=== PATIENT | female | born 1930 | race Caucasian/White ===

== ENCOUNTER → 2016-05-12 | Outpatient (REF) | payer MEDICARE | LOC: M SFHCCLAY 08:27 | PROVIDERS: ATTEND Family Medicine | DX: E78.4 Other hyperlipidemia (principal); E11.21 Type 2 diabetes mellitus with diabetic nephropathy ==

== ENCOUNTER → 2016-10-19 | Outpatient (REF) | payer MEDICARE | LOC: M LAB REF 19:52 | PROVIDERS: ATTEND Physician Assistant | DX: H65.01 Acute serous otitis media, right ear (principal) ==

== ENCOUNTER → 2016-11-23 | Outpatient (REF) | payer MEDICARE ==
[2016-11-23 12:42] LABS: ALBUMIN 3.8 GM/DL (3.2-5.2); ALBUMIN/GLOBULIN RATIO 1.12 (1.00-1.93); BILIRUBIN,TOTAL 0.3 MG/DL (0.2-1.0); CALCIUM LEVEL 9.4 MG/DL (8.8-10.2); CREATININE FOR GFR 1.34 MG/DL (0.55-1.02); GLOMERULAR FILTRATION RATE 39.8 (>32); MAGNESIUM LEVEL 2.2 MG/DL (1.8-2.4); TOTAL PROTEIN 7.2 GM/DL (6.4-8.2)
[2016-11-23 12:48] LABS: POTASSIUM SERUM 5.4 MEQ/L (3.5-5.1)
== END ==
LOC: M SFHCCLAY 07:26
PROVIDERS: ATTEND Family Medicine
DX: E78.4 Other hyperlipidemia (principal); E11.21 Type 2 diabetes mellitus with diabetic nephropathy; R25.2 Cramp and spasm; I10 Essential (primary) hypertension

== ENCOUNTER → 2016-11-27 | Outpatient (REF) | payer MEDICARE | LOC: M SFHCCLAY 11:31 | PROVIDERS: ATTEND Family Medicine | DX: R25.2 Cramp and spasm (principal); I10 Essential (primary) hypertension; E78.4 Other hyperlipidemia ==

== ENCOUNTER → 2017-03-21 | Outpatient (REF) | payer MEDICARE ==
[2017-03-21 16:33] LABS: CALCIUM LEVEL 10.1 MG/DL (8.8-10.2); CREATININE FOR GFR 1.63 MG/DL (0.55-1.02); GLOMERULAR FILTRATION RATE 31.7 (>32); PHOSPHORUS LEVEL 3.6 MG/DL (2.5-4.9); POTASSIUM SERUM 4.7 MEQ/L (3.5-5.1)
== END ==
LOC: M SFHCCLAY 10:35
PROVIDERS: ATTEND Family Medicine
DX: E11.21 Type 2 diabetes mellitus with diabetic nephropathy (principal)
CPT/HCPCS: 80069; G0463

== ENCOUNTER → 2017-04-04 | Outpatient (REF) | payer MEDICARE ==
[2017-04-04 11:43] LABS: ALBUMIN 3.9 GM/DL (3.2-5.2); CALCIUM LEVEL 9.5 MG/DL (8.8-10.2); CREATININE FOR GFR 1.88 MG/DL (0.55-1.02); GLOMERULAR FILTRATION RATE 26.9 (>32); PHOSPHORUS LEVEL 3.3 MG/DL (2.5-4.9); POTASSIUM SERUM 4.8 MEQ/L (3.5-5.1)
== END ==
LOC: M SFHCCLAY 08:11
PROVIDERS: ATTEND Family Medicine
DX: E11.21 Type 2 diabetes mellitus with diabetic nephropathy (principal)

== ENCOUNTER → 2017-04-27 | Outpatient (REF) | payer MEDICARE ==
[2017-04-27 18:53] LABS: FERRITIN 17 NG/ML (8-252); IRON (FE) 53 UG/DL (50-170); PERCENT SATURATION 12.3 % (13.2-45.0); TOTAL IRON BINDING CAPACITY 431 UG/DL (250-450)
== END ==
LOC: M LAB REF 17:20
DX: N18.3 Chronic kidney disease, stage 3 (moderate) (principal); D63.1 Anemia in chronic kidney disease
CPT/HCPCS: 83550

== ENCOUNTER → 2017-05-15 | Outpatient (CLI) | payer MEDICARE | LOC: M CLY 11:10 | DX: M46.02 Spinal enthesopathy, cervical region (principal); M41.9 Scoliosis, unspecified; G95.89 Other specified diseases of spinal cord | CPT/HCPCS: 72050 ==

== ENCOUNTER → 2017-07-26 | Outpatient (REF) | payer MEDICARE | LOC: M LAB REF 13:09 | DX: N18.3 Chronic kidney disease, stage 3 (moderate) (principal); R80.9 Proteinuria, unspecified | CPT/HCPCS: 84156 ==

== ENCOUNTER → 2017-08-01 | Outpatient (REF) | payer MEDICARE ==
[2017-08-01 13:26] LABS: ANION GAP 8 MEQ/L (8-16); BLOOD UREA NITROGEN 43 MG/DL (7-18); CALCIUM LEVEL 10.1 MG/DL (8.8-10.2); CARBON DIOXIDE LEVEL 25 MEQ/L (21-32); CHLORIDE LEVEL 104 MEQ/L (98-107); CREATININE FOR GFR 1.52 MG/DL (0.55-1.30); GLOMERULAR FILTRATION RATE 34.4 (>32); GLUCOSE, FASTING 197 MG/DL (70-100); POTASSIUM SERUM 4.8 MEQ/L (3.5-5.1); SODIUM LEVEL 137 MEQ/L (136-145)
[2017-08-01 15:15] LABS: ESTIMATED AVERAGE GLUCOSE 154 MG/DL (60-110)
== END ==
LOC: M SFHCCLAY 09:13
DX: E11.21 Type 2 diabetes mellitus with diabetic nephropathy (principal); N18.3 Chronic kidney disease, stage 3 (moderate); I12.9 Hypertensive chronic kidney disease with stage 1 through stage 4 chronic kidney disease, or unspecified chronic kidney disease
CPT/HCPCS: 83036

== ENCOUNTER → 2018-01-23 | Outpatient (REF) | payer MEDICARE ==
[2018-01-23 12:05] LABS: ANION GAP 7 MEQ/L (8-16); BLOOD UREA NITROGEN 45 MG/DL (7-18); CALCIUM LEVEL 9.5 MG/DL (8.8-10.2); CARBON DIOXIDE LEVEL 28 MEQ/L (21-32); CHLORIDE LEVEL 104 MEQ/L (98-107); CREATININE FOR GFR 1.57 MG/DL (0.55-1.30); GLOMERULAR FILTRATION RATE 33.1 (>32); GLUCOSE, FASTING 142 MG/DL (70-100); POTASSIUM SERUM 4.7 MEQ/L (3.5-5.1); SODIUM LEVEL 139 MEQ/L (136-145)
[2018-01-23 12:18] LABS: ESTIMATED AVERAGE GLUCOSE 157 MG/DL (60-110); HEMOGLOBIN A1c 7.1 %
== END ==
LOC: M SFHCCLAY 07:50
DX: E11.22 Type 2 diabetes mellitus with diabetic chronic kidney disease (principal); N18.3 Chronic kidney disease, stage 3 (moderate)
CPT/HCPCS: 83036

== ENCOUNTER 2018-04-28 18:37 | Emergency (ER) | payer MEDICARE ==
[~2018-04-28] VITALS: Ht 160 cm; Wt 63.2 kg
[2018-04-28] MEDS ORDERED: AZOP0.2S (18:43)
[2018-04-28] MEDS ORDERED: BIMA01SOL (18:43)
[2018-04-28] MEDS ORDERED: FISH7.5C PO (18:43)
[2018-04-28] MEDS ORDERED: HYDR25TAB (18:43)
[2018-04-28] MEDS ORDERED: OSTETAB4 PO (18:43)
[2018-04-28] MEDS ORDERED: GLIP5TAB8 (18:43)
[2018-04-28] MEDS ORDERED: MULTCAP PO (18:43)
[2018-04-28] MEDS ORDERED: AMLO5TAB6 (18:43)
[2018-04-28 19:52] VITALS: BP 152/73
[2018-04-28] MEDS ORDERED: ACETAMINOPH W/CODEINE #3 TAB UD PO ONE (20:15)
--- NOTE | 2018-04-29 06:30 | REP ---
Left humerus: Two views. History: Pain after a fall. Findings: Two views of the left humerus demonstrate an impacted and somewhat comminuted fracture of the surgical neck of the left proximal humerus. There is diffuse osteopenia. There are surgical clips in the left axillary soft tissues. No scapular or clavicular fracture. Impression: Impacted and somewhat comminuted fracture of the surgical neck of the left proximal humerus. Electronically Signed by Tad Lora MD 04/29/2018 08:13 A
== END 2018-04-28 20:19 | disposition home or self-care (01) ==
LOC: M ED 18:37
DX: S42.202A Unspecified fracture of upper end of left humerus, initial encounter for closed fracture (principal); W01.0XXA Fall on same level from slipping, tripping and stumbling without subsequent striking against object, initial encounter; Y92.018 Other place in single-family (private) house as the place of occurrence of the external cause; I10 Essential (primary) hypertension; E11.9 Type 2 diabetes mellitus without complications; Z79.899 Other long term (current) drug therapy; Z88.8 Allergy status to other drugs, medicaments and biological substances

== ENCOUNTER → 2018-05-17 | Outpatient (CLI) | payer MEDICARE ==
[~2018-05-17] MED LIST: AMLO5TAB6; AZOP0.2S; BIMA01SOL; FENO48TA2; FISH7.5C PO; GLIP5TAB8; HYDR25TAB; LIDO5TD TOP; MULTCAP PO; OSTETAB4 PO; SULF1TAB93 PO
--- NOTE | 2018-05-17 14:31 | REP ---
Clinical: Left sided pleuritic chest pain Technique: Four views of the left hemithorax. Findings: Four views of the left hemithorax demonstrates no obvious acute rib fracture or pathology. Left axillary node dissection noted. No pneumothorax. Nonacute fracture of the humeral head at the surgical neck unchanged compared to 04/28/2018. Impression: No acute rib fracture. Humeral head fracture at the surgical neck unchanged compared to 04/28/2018. Electronically Signed by Erlin Prakash MD 05/17/2018 02:22 P
== END ==
LOC: M CLY 13:56
PROVIDERS: ATTEND Family Medicine
DX: S42.202D Unspecified fracture of upper end of left humerus, subsequent encounter for fracture with routine healing (principal); R07.81 Pleurodynia
CPT/HCPCS: 71100; G0463

== ENCOUNTER 2018-05-25 19:06 | Emergency (ER) | payer MEDICARE ==
[~2018-05-25] VITALS: Ht 157.5 cm; Wt 61.8 kg
[~2018-05-25 19:06] MED LIST changes: -FENO48TA2; -LIDO5TD TOP; -SULF1TAB93 PO
[2018-05-25] MEDS ORDERED: FENO48TA2 (19:16)
--- NOTE | 2018-05-25 21:29 | REPVR ---
EXAM: US Left Duplex Upper Extremity Veins, Limited EXAM DATE/TIME: 05/25/2018 8:42 PM CLINICAL HISTORY: 88 years old, female; Signs and symptoms; Edema, localized; Upper extremity, left; Additional info: L hand swelling, recent l shoulder FX TECHNIQUE: Real-time Duplex ultrasound of the Left Upper Extremity with 2-D kirkpatrick scale, color Doppler flow and spectral waveform analysis. Limited exam focused on the left upper extremity veins. COMPARISON: No relevant prior studies available. FINDINGS: Left deep veins: Internal jugular, subclavian, axillary and brachial veins patent without thrombus. Normal compressibility, augmentation response and/or Doppler waveforms. Left superficial veins: Visualized cephalic and basilic veins patent without thrombus. Soft tissues: Unremarkable. IMPRESSION: No sonographic evidence of deep vein thrombosis. Electronically signed by: Wally Soria On 05/25/2018 21:28:46 PM
[2018-05-25] MEDS ORDERED: ACETAMINOPHEN 325 MG TAB PO ONE (21:30)
[2018-05-25 22:28] LABS: BASO % 0.3 % (0.0-1.0); EOS # 0.1 10^3/uL (0.0-0.50); EOS % 0.8 % (0.0-3.0); HEMATOCRIT 32.2 % (36.0-47.0); HEMOGLOBIN 10.8 g/dl (12.0-15.5); LYMPH # 2.5 10^3/uL (1.5-4.5); LYMPH % 20.9 % (24.0-44.0); MEAN CORPUSCULAR HGB CONC 33.5 g/dl (32.0-36.5); MEAN CORPUSCULAR VOLUME 92.5 fl (80.0-96.0); MONO # 1.3 10^3/uL (0.0-0.8); MONO % 10.9 % (0.0-5.0); NEUTROPHILS % 66.8 % (36.0-66.0); PLATELET COUNT, AUTOMATED 564 10^3/uL (150-450); RED BLOOD COUNT 3.48 10^6/uL (4.00-5.40); WHITE BLOOD COUNT 11.9 10^3/uL (4.0-10.0)
[2018-05-25 22:56] LABS: ALBUMIN 3.4 GM/DL (3.2-5.2); BILIRUBIN,DIRECT 0.1 MG/DL (0.0-0.2); BILIRUBIN,TOTAL 0.2 MG/DL (0.2-1.0); C REACTIVE PROTEIN QUANTITATIV 7.45 MG/DL (0.00-0.30); CREATININE FOR GFR 1.25 MG/DL (0.55-1.30); POTASSIUM SERUM 4.4 MEQ/L (3.5-5.1)
[2018-05-25 23:01] LABS: APPEARANCE, URINE CLEAR (CLEAR); BACTERIA, URINE AUTO 1+ (NEGATIVE); BILIRUBIN, URINE AUTO NEGATIVE (NEGATIVE); BLOOD, URINE BLOOD NEGATIVE (NEGATIVE); COLOR, URINE YELLOW (YELLOW); GLUCOSE, URINE (UA) AUTO NEGATIVE (NEGATIVE); KETONE, URINE AUTO NEGATIVE (NEGATIVE); LEUKOCYTE ESTERASE, URINE AUTO TRACE (NEGATIVE); NITRITE, URINE AUTO NEGATIVE (NEGATIVE); PROTEIN, URINE AUTO NEGATIVE (NEGATIVE); RBC, URINE AUTO 2 /HPF (0-3); SPECIFIC GRAVITY URINE AUTO 1.016 (1.002-1.035); SQUAMOUS EPITHELIAL CELL UR AU 0 /HPF (0-6); UROBILINOGEN, URINE AUTO 0.2 mg/dL (0.0-2.0); WBC, URINE AUTO 2 /HPF (0-3)
[2018-05-25] MEDS ORDERED: LIDO5TD TOP (23:24)
[2018-05-25 23:30] VITALS: BP 137/78
[2018-05-25] MEDS ORDERED: SULF1TAB93 PO (23:43)
[2018-05-25] MEDS ORDERED: BACTRIM 160MG/800MG DS TAB PO ONE (23:45)
--- NOTE | 2018-05-27 11:06 | REP ---
LEFT HAND: Four views left hand performed. No acute fracture or dislocation is seen. There is narrowing and spurring as well as subchondral sclerosis of the joint between the trapezium and base of 1st metacarpal. There is moderate narrowing of 2nd metacarpophalangeal joint. There is mild to moderate narrowing diffuse of the interphalangeal joints. IMPRESSION: Diffuse degenerative changes. No fracture or osseous destruction. Electronically Signed by Theodore Mccullough MD 05/27/2018 10:55 P
--- NOTE | 2018-05-27 11:30 | REP ---
CHEST, TWO VIEWS: Two views of the chest are performed. There is mild scattered fibrotic change bilaterally. There is no acute infiltrate. The heart is not enlarged. There is calcification and tortuosity of the thoracic aorta. The mediastinal silhouette is otherwise unremarkable. Metallic clips are seen in the left axillary region. There are mild degenerative changes of the spine. IMPRESSION: Chronic changes without evidence of acute infiltrate. Electronically Signed by Theodore Mccullough MD 05/27/2018 10:55 P
== END 2018-05-26 | disposition home or self-care (01) ==
LOC: M ED 19:06
DX: M19.142 Post-traumatic osteoarthritis, left hand (principal); N18.3 Chronic kidney disease, stage 3 (moderate); D64.9 Anemia, unspecified; N39.0 Urinary tract infection, site not specified; E11.29 Type 2 diabetes mellitus with other diabetic kidney complication; I12.9 Hypertensive chronic kidney disease with stage 1 through stage 4 chronic kidney disease, or unspecified chronic kidney disease; Z85.3 Personal history of malignant neoplasm of breast; M54.9 Dorsalgia, unspecified; Z88.8 Allergy status to other drugs, medicaments and biological substances; Z79.899 Other long term (current) drug therapy

== ENCOUNTER → 2018-06-06 | Outpatient (REF) | payer MEDICARE ==
[~2018-06-06] MED LIST changes: +FENO48TA2; +LIDO5TD TOP; +SULF1TAB93 PO
[2018-06-06 17:50] LABS: HEMOGLOBIN A1c 8.2 %
== END ==
LOC: M SFHCCLAY 12:16
PROVIDERS: ATTEND Family Medicine
DX: E11.21 Type 2 diabetes mellitus with diabetic nephropathy (principal)
CPT/HCPCS: 83036; G0463